=== PATIENT | female | born 1950 | race Caucasian/White ===

== ENCOUNTER 2021-03-16 02:22 | Inpatient (IN) | payer MEDICARE, MEDICAID, SELFPAY ==
[2021-03-16] VITALS (8 sets, daily range): BP systolic 125–196; BP diastolic 71–97; PULSE 82–119; RESP 18; TEMP 36.2–36.4; O2SAT 94–96; BMI 16.9
--- NOTE | 2021-03-16 04:26 | PC.ADMIT ---
Patient is a 70 year old Burmese speaking that was assessed at [facility] in [place], [place]. Patient was cited with increased depression and SI plan to overdose. Patient currently denies any current suicidal intent, but reports she is feeling hopeless and helpless. Patient reports that she has not been eating well for past 3 months and has lost about 40 lbs. Patient reports she is currently not taking any medications. Patient does report many family losses over the past year and a brother that was diagnosed with a terminal illness. Patient reported elevated anxiety and depression. During conversation patient appeared confused at some points, not remembering that she takes medications for HTN and cholesterol. Patient using a walker and was placed on 15 minute visual safety checks currently. patient deemed a high fall risk due to unsteady gait. Patient was involved in the intake and is future focused for help.
[2021-03-16] MEDS: Atorvastatin Calcium 20 MG TABLET PO (09:06)
[2021-03-16] MEDS: busPIRone HCl 5 MG TABLET 15 MG PO ×3 (09:06→21:16)
--- NOTE | 2021-03-16 09:10 | P.HPPS_ITS ---
HPI Chief Complaint: Adjustment disorder Additional Sources of Information: Cassi was the primary source of information in addition to the crisis team note HPI Subjective Notes: Conditional Voluntary Medical Problems Affecting Mental Status: No Narrative: Cassi is a 70-year-old white, , mother of 1 son who is 40 years old and is wheelchair bound because of multiple sclerosis which was diagnosed at age 18. She has had a longstanding history of depression. She has had 1 previous hospitalization at [facility] 2 years ago. In the past she has been on several SSRIs including Prozac, Zoloft, Celexa and did not find them to be that helpful. Recently and currently she is on no psychotropics. She states that several of her family members and siblings have been on Lexapro with very good response and she is interested in trying that. She has had a number of losses in the past 2 months including a brother and a sister. She lives alone and feels isolated. She does not have any history of substance abuse. In the past couple of months she is eating minimally and has lost a lot of weight. She has erratic sleep. She has been feeling hopeless and helpless and sometimes feeling that she would be better off . She denies any active suicidal ideations. No history of suicide attempts. She is on BuSpar 15 mg b.i.d., Remeron 30 mg q.h.s., Seroquel 25 mg t.i.d. p.r.n. Social history: Cassi is a walk-in of 7 siblings, 5 surviving. Both parents are . 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 She has been once for 25 years and for 20 years. Currently she lives alone and is on disability. Plan: Patient meets inpatient criteria for level of care for stabilization, safety and treatment. Lexapro 10 mg is initiated. Side effects were reviewed Past Psychiatric History: Past psychiatric history is positive for 1 inpatient hospitalization. She has had some outpatient treatment but not currently and recently Medical Evaluation Reviewed: Hospitalist Dereck Pending [facility] Medical History (Updated 03/16/21 @ 04:18 by Zaheer Becker RN) Anemia Dyslipidemia DOROTHY (generalized anxiety disorder) Hammer toe Hypertension Osteoarthritis Narrative: She has had polio in the past Family History: There is family history of depression Social History: Please refer to the initial narrative in this report Substance History: None Diagnostics Vital Signs (24Hr): Vital Signs - 24 hr 03/16/21 02:40 03/16/21 06:00 Temperature 97.5 F 97.1 F Pulse Rate 89 119 H Respiratory Rate 18 18 Blood Pressure 125/71 186/96 H Pulse Oximetry 96 94 Body Mass Index 16.9 Meds/Allergies Meds Home Medications Acetaminophen (Acetaminophen 325 Mg Tablet) 650 mg PO Q6H PRN PRN Reason: Headache/Pain Mild Scale (1-3) Al Hydroxide/Mg Hydroxide (Magnesium Hydrox/Alum Hydrox 30 Ml Oral.Susp) 30 ml PO Q6H PRN PRN Reason: Heartburn/Nausea Atorvastatin Calcium (Atorvastatin Calcium 20 Mg Tablet) 20 mg PO DAILY [facility] Last Admin: 03/16/21 09:06 Dose: 20 mg Documented by: Buspirone HCl (Buspirone Hcl 5 Mg Tablet) 15 mg PO TID [facility] Last Admin: 03/16/21 09:06 Dose: 15 mg Documented by: Losartan Potassium (Losartan Potassium 25 Mg Tablet) 25 mg PO DAILY [facility]; Protocol Magnesium Hydroxide (Milk Of Magnesia 30 Ml Oral.Susp) 30 ml PO DAILY PRN PRN Reason: Constipation Mirtazapine (Mirtazapine 30 Mg Tablet) 30 mg PO BEDTIME [facility] Non-Formulary Medication (Difluprednate [Durezol]) 1 drop EYE-BOTH TID CINDI Quetiapine Fumarate (Quetiapine Fumarate 25 Mg Tablet) 25 mg PO TID PRN PRN Reason: Anxiety Allergies Allergies Allergy/AdvReac Type Severity Reaction Status Date / Time Sulfa (Sulfonamide Allergy Unknown Verified 07/08/18 00:00 Antibiotics) Mental Status Exam Mental Status Exam Narrative: Patient was seen in the morning after her admission. She is alert, oriented, pleasant and cooperative. Speech is normal. Good eye contact. She is able to give adequate information. Affect is appropriate and subdued. No signs of psychosis. She denies any active suicidal ideations but admits to feelings of hopelessness and helplessness and sometimes having wishes. Cognitively he is intact. Judgment is intact Assessment & Plan Patient educated on: diagnosis, medication risk/benefits, substance abuse, ECT, TMS, therapeutic strategies, medical condition and other Reason for continued inpatient stay Substantial Risk for: harm to self
[2021-03-16] MEDS: Escitalopram Oxalate 10 MG TABLET PO (10:44)
[2021-03-16] MEDS: Losartan Potassium 25 MG TABLET PO (10:44)
[2021-03-16] MEDS: cloNIDine HCL 0.1 MG TABLET PO ×2 (12:39→21:16)
--- NOTE | 2021-03-16 14:22 | P.CONIM_ITS ---
History of Present Illness Data of Consult Service Date: 03/16/21 Requesting physician: Noel Baez Primary Care Provider: Unknown Physician HPI Reason for consult: Routine medical consultation 70-year-old woman admitted to for psychiatric care. Her vital signs are stable though her blood pressure is mildly elevated. No recent labs drawn. She has no acute medical complaints at this time. Routine medical consultation was placed. Review of Systems Review of Systems: Denies any recent fever chills or decrease in appetite respiratory denies any shortness of breath coverage production cardiovascular is adjustment of any PND or edema gastrointestinal denies any dysphagia abdominal pain nausea vomiting or diarrhea genitourinary denies any dysuria frequency or hematuria musculoskeletal denies any joint pain or swelling neuropsych denies any weakness or seizures all other systems reviewed are negative [facility] Medical History (Updated 03/16/21 @ 14:25 by Massiel Choi NP) Anemia Dyslipidemia DOROTHY (generalized anxiety disorder) Hammer toe Hypertension Osteoarthritis Social History Household Members: Significant Other Housing: House Do you presently have visiting nurse or other home services: No Patient Tobacco Use Status: Never used Tobacco Smoked in Last 30 Days: No e-Cigarette/Vaping Use: Former Use Patient Interested in Nicotine Replacement: No Patient Given Instructions on How to Stop Smoking: No Second Hand Smoke Exposure: No Use of substances other than those prescribed or required for medical reasons: No Currently Displaying Signs/Symptoms of Drug Intoxication Withdrawal: No Any prior treatment program specific to substance use: No Have you been hit, kicked, punched, or otherwise hurt by someone within the past year? If so, by whom?: No Do you feel safe in your current relationship?: No Is there a partner from a previous relationship who is making you feel unsafe now?: No Are you made to feel afraid or neglected: No Spiritual Healthcare Practices: none Religion Healthcare Practices: none Cultural Healthcare Practices: none Advance Directives: No Advance Directives Information Provided: No (declined) Advance Directives on File: No Do you have thoughts of harming others: None Do you have a plan to hurt others: No Plan Recently lost weight without trying: Yes How much weight loss: 34pounds or more Eating poorly because of decreased appetite: Yes Nutrition screen score: 7 Nutrition Risks: Poor intake 0-25% >4 days Patient : No : No Poor oral hygiene: No service: No Sexual orientation: Straight/Heterosexual Meds Allergies Allergy/AdvReac Type Severity Reaction Status Date / Time Sulfa (Sulfonamide Allergy Unknown Verified 07/08/18 00:00 Antibiotics) Active Medications: Current Medications Generic Name Dose Route Start Last Admin Trade Name Freq PRN Reason Stop Dose Admin Acetaminophen 650 mg 03/16/21 03:43 Acetaminophen 325 Mg Tablet PO Q6H PRN Headache/Pain Mild Scale (1-3) Al Hydroxide/Mg Hydroxide 30 ml 03/16/21 03:43 Magnesium Hydrox/Alum Hydrox 30 Ml Oral.Susp PO Q6H PRN Heartburn/Nausea Atorvastatin Calcium 20 mg 03/16/21 09:00 03/16/21 09:06 Atorvastatin Calcium 20 Mg Tablet PO 20 mg DAILY CINDI Administration Buspirone HCl 15 mg 03/16/21 09:00 03/16/21 09:06 Buspirone Hcl 5 Mg Tablet PO 15 mg TID CINDI Administration Clonidine HCl 0.1 mg 03/16/21 15:00 03/16/21 12:39 Clonidine Hcl 0.1 Mg Tablet PO 0.1 mg TID CINDI Administration Protocol Escitalopram Oxalate 10 mg 03/16/21 09:45 03/16/21 10:44 Escitalopram Oxalate 10 Mg Tablet PO 10 mg DAILY CINDI Administration Losartan Potassium 25 mg 03/16/21 09:00 03/16/21 10:44 Losartan Potassium 25 Mg Tablet PO 25 mg DAILY CINDI Administration Protocol Magnesium Hydroxide 30 ml 03/16/21 03:43 Milk Of Magnesia 30 Ml Oral.Susp PO DAILY PRN Constipation Mirtazapine 30 mg 03/16/21 21:00 Mirtazapine 30 Mg Tablet PO BEDTIME CINDI Non-Formulary Medication 1 drop 03/16/21 09:00 Difluprednate [Durezol] EYE-BOTH TID CINDI Quetiapine Fumarate 25 mg 03/16/21 03:43 Quetiapine Fumarate 25 Mg Tablet PO TID PRN Anxiety Home Medications Medication Instructions Recorded Confirmed Last Taken Type atorvastatin 1 tab PO DAILY 03/16/21 03/16/21 03/15/21 History 20 mg buspirone 1 tab PO TID 03/16/21 03/16/21 03/15/21 History 15 mg difluprednate [Durezol] 1 drp OPHTHALMIC (EYE) TID 03/16/21 03/16/21 Unknown History hydroxyzine pamoate cap PO 03/16/21 Unknown History losartan 1 tab PO DAILY 03/16/21 03/16/21 03/15/21 History 25 mg mirtazapine 1 tab PO BEDTIME 03/16/21 03/16/21 03/15/21 History 30 mg quetiapine 1 tab PO TID PRN 03/16/21 03/16/21 03/15/21 History 25 mg Physical Exam Vital Signs and Narrative: Vital Signs: Last Vital Signs Temp 97.1 F 03/16/21 06:00 Pulse 104 H 03/16/21 13:49 Resp 18 03/16/21 06:00 BP 151/83 H 03/16/21 13:49 Pulse Ox 94 03/16/21 06:00 Body Mass Index 16.9 Appearing in no acute distress head is normocephalic atraumatic eyes pupils are PERRLA sclera is anicteric mouth throat mucous membranes are intact and moist neck is supple no lymphadenopathy, no JVD noted lung sounds are clear to auscultation heart regular rate rhythm, clear S1, S2 positive bowel sounds, abdomen is soft, nontender neuro patient is alert x3, no focal deficits Assessment and Plan (1) Dyslipidemia: Status: Acute 70 year old women admitted to for psychiatric care. Routine medical consultation was requested Hypertension. Elevated blood pressure -Follow BP every shift -Losartan Hyperlipidemia -continue statin Psychiatric -Management as per psychiatry team
[2021-03-16] MEDS: Mirtazapine 30 MG TABLET PO (21:16)
[2021-03-17 06:15] VITALS: BP 147/77; PULSE 79; RESP 18; TEMP 36.3; O2SAT 99
--- NOTE | 2021-03-17 08:28 | HO.PSYCHPN ---
Subjective Subjective Date of Service: 03/17/21 Reason For Visit: Adjustment disorder Subjective Notes: Conditional Voluntary Guardianship: No Medical Problems Affecting Mental Status: No Interim History: Patient was seen in rounds today. She has settled in well. The yesterday her blood pressure was elevated and in talking to her it appears that she has not been taking her losartan regularly. Clonidine 0.1 mg t.i.d. was ordered and her blood pressure improved after that. She did start Lexapro and denies any side effects. Eating better and sleeping continues to be erratic. No changes were made today Medication Compliance: Yes Side effects from medications: No Attending Groups: Yes Review of Systems Review of Systems Yes all other systems are reviewed and are negative Mental Status Exam Mental Status Exam Narrative: She is alert, oriented, pleasant and cooperative. Speech is normal. Good eye contact. She is able to give adequate information. Affect is appropriate and subdued. No signs of psychosis. She denies any active suicidal ideations but admits to feelings of hopelessness and helplessness and sometimes having wishes. Cognitively he is intact. Judgment is intact Diagnostics Vital Signs (24Hr): Vital Signs - 24 hr 03/16/21 10:44 03/16/21 12:21 03/16/21 12:39 Temperature Pulse Rate 98 83 83 Respiratory Rate Blood Pressure 184/91 H 196/97 H 196/97 H Pulse Oximetry 03/16/21 13:49 03/16/21 18:00 03/16/21 21:16 Temperature 97.3 F Pulse Rate 104 H 82 82 Respiratory Rate Blood Pressure 151/83 H 162/90 H 162/90 H Pulse Oximetry 03/17/21 06:15 Temperature 97.4 F Pulse Rate 79 Respiratory Rate 18 Blood Pressure 147/77 H Pulse Oximetry 99 Body Mass Index 16.9 Medications Medications Current Medications Generic Name Dose Route Start Last Admin Trade Name Freq PRN Reason Stop Dose Admin Acetaminophen 650 mg 03/16/21 03:43 Acetaminophen 325 Mg Tablet PO Q6H PRN Headache/Pain Mild Scale (1-3) Al Hydroxide/Mg Hydroxide 30 ml 03/16/21 03:43 Magnesium Hydrox/Alum Hydrox 30 Ml Oral.Susp PO Q6H PRN Heartburn/Nausea Atorvastatin Calcium 20 mg 03/16/21 09:00 03/16/21 09:06 Atorvastatin Calcium 20 Mg Tablet PO 20 mg DAILY CINDI Administration Buspirone HCl 15 mg 03/16/21 09:00 03/16/21 21:16 Buspirone Hcl 5 Mg Tablet PO 15 mg TID CINDI Administration Clonidine HCl 0.1 mg 03/16/21 15:00 03/16/21 21:16 Clonidine Hcl 0.1 Mg Tablet PO 0.1 mg TID CINID Administration Protocol Escitalopram Oxalate 10 mg 03/16/21 09:45 03/16/21 10:44 Escitalopram Oxalate 10 Mg Tablet PO 10 mg DAILY CINDI Administration Losartan Potassium 25 mg 03/16/21 09:00 03/16/21 10:44 Losartan Potassium 25 Mg Tablet PO 25 mg DAILY CINDI Administration Protocol Magnesium Hydroxide 30 ml 03/16/21 03:43 Milk Of Magnesia 30 Ml Oral.Susp PO DAILY PRN Constipation Mirtazapine 30 mg 03/16/21 21:00 03/16/21 21:16 Mirtazapine 30 Mg Tablet PO 30 mg BEDTIME CINDI Administration Non-Formulary Medication 1 drop 03/16/21 09:00 Difluprednate [Durezol] EYE-BOTH TID CINDI Quetiapine Fumarate 25 mg 03/16/21 03:43 Quetiapine Fumarate 25 Mg Tablet PO TID PRN Anxiety Allergies Allergies Allergy/AdvReac Type Severity Reaction Status Date / Time Sulfa (Sulfonamide Allergy Unknown Verified 07/08/18 00:00 Antibiotics) Assessment & Plan Assessment & Plan (1) Dyslipidemia: Status: Acute Code(s): E78.5 - Hyperlipidemia, unspecified Assessment and Plan: 70 year old women admitted to for psychiatric care. Hypertension. Elevated blood pressure -Follow BP every shift -Losartan and clonidine Hyperlipidemia -continue statin Psychiatric -Management as per psychiatry team Greater than 50% of the session was spent on counseling and/or coordination of care Reason for contiued inpatient stay Substantial Risk for: harm to self
[2021-03-17 09:42] VITALS: BP 151/88; PULSE 104
[2021-03-17] MEDS: cloNIDine HCL 0.1 MG TABLET PO ×3 (09:42→21:20)
[2021-03-17] MEDS: Atorvastatin Calcium 20 MG TABLET PO (09:43)
[2021-03-17] MEDS: Losartan Potassium 25 MG TABLET PO (09:43)
[2021-03-17] MEDS: busPIRone HCl 5 MG TABLET 15 MG PO ×3 (09:43→21:19)
[2021-03-17] MEDS: Escitalopram Oxalate 10 MG TABLET PO (09:43)
[2021-03-17 14:08] VITALS: BP 111/63; PULSE 88
[2021-03-17 16:55] VITALS: BP 92/50; PULSE 65; TEMP 36.3
[2021-03-17] MEDS: Mirtazapine 30 MG TABLET PO (21:19)
[2021-03-17 21:20] VITALS: BP 116/67; PULSE 79
[2021-03-17] MEDS: QUEtiapine Fumarate 25 MG TABLET PO (23:22)
[2021-03-18 06:40] VITALS: BP 119/57; PULSE 71; TEMP 36.2
[2021-03-18 07:58] VITALS: BP 127/70; PULSE 84
[2021-03-18] MEDS: busPIRone HCl 5 MG TABLET 15 MG PO ×3 (07:58→22:09)
[2021-03-18] MEDS: Losartan Potassium 25 MG TABLET PO (07:58)
[2021-03-18] MEDS: Escitalopram Oxalate 10 MG TABLET PO (07:58)
[2021-03-18] MEDS: cloNIDine HCL 0.1 MG TABLET PO ×3 (07:58→22:09)
[2021-03-18] MEDS: Atorvastatin Calcium 20 MG TABLET PO (07:59)
--- NOTE | 2021-03-18 09:43 | HO.PSYCHPN ---
Subjective Subjective Date of Service: 03/18/21 Reason For Visit: Adjustment disorder Subjective Notes: Conditional Voluntary Healthcare Proxy: No Guardianship: No Medical Problems Affecting Mental Status: No Interim History: Patient was seen in rounds today. She continues to struggle with no appetite and poor eating. We discussed options and I ordered a dietary supplement, Ensure to be given twice a day and also added Megace 800 mg daily. Sleeping has been poor and I will increase her Seroquel to 50 mg. She denies any side effects. Depression continues to be present. She has been tolerating the Lexapro and had several questions about it which read this which we discussed. Medication Compliance: Yes Side effects from medications: No Attending Groups: Yes Review of Systems Review of Systems Yes all other systems are reviewed and are negative Mental Status Exam Mental Status Exam Narrative: In today's visit she is alert, oriented and pleasant. Normal speech. Good eye contact. Affect is appropriate and constricted. No active SI. Back Diagnostics Vital Signs (24Hr): Vital Signs - 24 hr 03/17/21 14:08 03/17/21 16:55 03/17/21 21:20 Temperature 97.3 F Pulse Rate 88 65 79 Blood Pressure 111/63 92/50 L 116/67 03/18/21 06:40 03/18/21 07:58 Temperature 97.1 F Pulse Rate 71 84 Blood Pressure 119/57 L 127/70 Body Mass Index 16.9 Medications Medications Current Medications Generic Name Dose Route Start Last Admin Trade Name Freq PRN Reason Stop Dose Admin Acetaminophen 650 mg 03/16/21 03:43 Acetaminophen 325 Mg Tablet PO Q6H PRN Headache/Pain Mild Scale (1-3) Al Hydroxide/Mg Hydroxide 30 ml 03/16/21 03:43 Magnesium Hydrox/Alum Hydrox 30 Ml Oral.Susp PO Q6H PRN Heartburn/Nausea Atorvastatin Calcium 20 mg 03/16/21 09:00 03/18/21 07:59 Atorvastatin Calcium 20 Mg Tablet PO 20 mg DAILY CINDI Administration Buspirone HCl 15 mg 03/16/21 09:00 03/18/21 07:58 Buspirone Hcl 5 Mg Tablet PO 15 mg TID CINDI Administration Clonidine HCl 0.1 mg 03/16/21 15:00 03/18/21 07:58 Clonidine Hcl 0.1 Mg Tablet PO 0.1 mg TID CINDI Administration Protocol Escitalopram Oxalate 10 mg 03/16/21 09:45 03/18/21 07:58 Escitalopram Oxalate 10 Mg Tablet PO 10 mg DAILY CINDI Administration Losartan Potassium 25 mg 03/16/21 09:00 03/18/21 07:58 Losartan Potassium 25 Mg Tablet PO 25 mg DAILY CINDI Administration Protocol Magnesium Hydroxide 30 ml 03/16/21 03:43 Milk Of Magnesia 30 Ml Oral.Susp PO DAILY PRN Constipation Mirtazapine 30 mg 03/16/21 21:00 03/17/21 21:19 Mirtazapine 30 Mg Tablet PO 30 mg BEDTIME CINDI Administration Non-Formulary Medication 1 drop 03/16/21 09:00 Difluprednate [Durezol] EYE-BOTH TID CINDI Quetiapine Fumarate 25 mg 03/16/21 03:43 03/17/21 23:22 Quetiapine Fumarate 25 Mg Tablet PO 25 mg TID PRN Administration Anxiety Allergies Allergies Allergy/AdvReac Type Severity Reaction Status Date / Time Sulfa (Sulfonamide Allergy Unknown Verified 07/08/18 00:00 Antibiotics) Assessment & Plan Assessment & Plan (1) Dyslipidemia: Status: Acute Code(s): E78.5 - Hyperlipidemia, unspecified Assessment and Plan: 70 year old women admitted to for psychiatric care for depression and suicidality Hypertension. Elevated blood pressure -Follow BP every shift -Losartan and clonidine Hyperlipidemia -continue statin Psychiatric -Management as per psychiatry team Continue current regimen with addition of Megace and increase of Seroquel Greater than 50% of the session was spent on counseling and/or coordination of care Reason for contiued inpatient stay Substantial Risk for: harm to self
[2021-03-18] MEDS: Megestrol Acetate 400 MG/10 ML ORAL.SUSP 800 MG PO (11:22)
[2021-03-18 14:47] VITALS: BP 118/66; PULSE 80
[2021-03-18] MEDS: QUEtiapine Fumarate 25 MG TABLET PO (14:47)
--- NOTE | 2021-03-18 15:54 | MHC.CLN ---
RE: CONSULT HT 61 WT 90# IBW 105#+/-10% PT IS 86% IBW INDICATES MILDLY UNDER WT FOR HT; BMI 16.9 PT REPORTS 40# WT LOSS X 3 MONTHS WITH POOR PO PT TRIGGERS FOR 31% SIGNIFICANT WT LOSS WITH UBW 130# ENN: 1227-1435KCALS (30-35KCALS/KG), 41G PROTEIN, 1230CC FLUIDS LABS: N/A MEDS: REMERON, SEROQUEL, BUSPAR DIET RX: REGULAR-APPROPRIATE PT RECEIVING ENSURE TID TO PROVIDE 1050KCALS, 60G PROTEIN SUPPLEMENT PROVIDES 73% EST KCAL NEEDS, 158% EST. PROTEIN NEEDS RECOMMEND CONTINUE WITH SUPPLEMENT, WEEKLY WEIGHTS AND MONITOR PO INTAKE CLOSELY
[2021-03-18 18:00] VITALS: BP 127/66; PULSE 74; TEMP 37.1
[2021-03-18 22:09] VITALS: BP 127/66; PULSE 74
[2021-03-18] MEDS: QUEtiapine Fumarate 50 MG TABLET PO (22:09)
[2021-03-18] MEDS: Mirtazapine 30 MG TABLET PO (22:10)
[2021-03-19 06:00] VITALS: BP 118/60; PULSE 66
[2021-03-19 09:22] VITALS: BP 118/60; PULSE 66
[2021-03-19] MEDS: cloNIDine HCL 0.1 MG TABLET PO ×3 (09:22→22:12)
[2021-03-19] MEDS: Atorvastatin Calcium 20 MG TABLET PO (09:22)
[2021-03-19] MEDS: Losartan Potassium 25 MG TABLET PO (09:22)
[2021-03-19] MEDS: QUEtiapine Fumarate 50 MG TABLET PO ×2 (09:23→22:08)
[2021-03-19] MEDS: busPIRone HCl 5 MG TABLET 15 MG PO ×3 (09:23→22:08)
[2021-03-19] MEDS: Escitalopram Oxalate 10 MG TABLET PO (09:23)
--- NOTE | 2021-03-19 10:29 | P.PNPSI_ITS ---
Subjective Subjective Date of Service: 04/09/21 Reason For Visit: Adjustment disorder Interim History: Patient continues to endorse depressed mood, anhedonia, poor sleep. She has been mostly in bed. She denies SI/HI. Taking medications as prescribed, no side effects. Review of Systems Review of Systems Denies any recent fever chills or decrease in appetite respiratory denies any shortness of breath coverage production cardiovascular is adjustment of any PND or edema gastrointestinal denies any dysphagia abdominal pain nausea vomiting or diarrhea genitourinary denies any dysuria frequency or hematuria musculoskeletal denies any joint pain or swelling neuropsych denies any weakness or seizures all other systems reviewed are negative Yes all other systems are reviewed and are negative and Other Constitutional: Reports as per HPI, Reports difficulty sleeping, Reports lethargy, Reports stops breathing during sleep and Reports weight loss Musculoskeletal: Reports abnormal gait Skin/Breast: Reports system reviewed and no additional complaints, except as docu Reports system reviewed and no additional complaints, except as documented and Reports abnormal gait Psychiatric: Reports as per HPI Endocrine: Reports no additional endocrine complaints Hematologic/Lymphatic: Reports as per HPI Allergic/Immunologic: Reports no additional allergic/immunologic complaints Mental Status Exam Mental Status Exam Narrative: Appearance: casually groomed, fair hygiene, in NAD Behavior: calm, cooperative Psychomotor: no agitation or retardation noted Speech: clear, normal rate/rhythm/volume, spontaneous TP: linear TC: no signs of psychosis, future oriented Mood: better Affect:brighter, non labile SI:none HI:none AH/VH:none Delusions:none Insight/judgment:fair x 2. Memory/cog: alert, oriented x 3. Grossly intact to conversational testing. Diagnostics Vital Signs (24Hr): Body Mass Index 18.8 Medications Allergies Allergies Allergy/AdvReac Type Severity Reaction Status Date / Time Sulfa (Sulfonamide Allergy Unknown Verified 07/08/18 00:00 Antibiotics) Assessment & Plan Assessment & Plan (1) Dyslipidemia: Status: Acute Code(s): E78.5 - Hyperlipidemia, unspecified Assessment and Plan: 70 year old women admitted to for psychiatric care for depression and suici dality Hypertension. Elevated blood pressure -Follow BP every shift -Losartan and clonidine Hyperlipidemia -continue statin Psychiatric -Management as per psychiatry team Continue current regimen with addition of Megace and increase of Seroquel Greater than 50% of the session was spent on counseling and/or coordination of care Reason for contiued inpatient stay Substantial Risk for: harm to self
[2021-03-19] MEDS: Acetaminophen 325 MG TABLET 650 MG PO (12:50)
[2021-03-19] MEDS: QUEtiapine Fumarate 25 MG TABLET PO ×2 (12:50→17:15)
[2021-03-19 16:45] VITALS: BP 115/59; PULSE 75
[2021-03-19] MEDS: Mirtazapine 30 MG TABLET PO (22:08)
[2021-03-19 22:12] VITALS: BP 126/56; PULSE 84
[2021-03-19 22:14] VITALS: BP 126/56; PULSE 84; TEMP 36.9; O2SAT 97
[2021-03-20 06:00] VITALS: BP 148/65; PULSE 72; RESP 16; TEMP 36.2; O2SAT 98
[2021-03-20 08:40] VITALS: BP 149/81; PULSE 73
[2021-03-20] MEDS: cloNIDine HCL 0.1 MG TABLET PO ×3 (08:40→21:48)
[2021-03-20] MEDS: busPIRone HCl 5 MG TABLET 15 MG PO (08:45)
[2021-03-20] MEDS: QUEtiapine Fumarate 50 MG TABLET PO (08:45)
[2021-03-20] MEDS: Escitalopram Oxalate 10 MG TABLET PO (08:45)
--- NOTE | 2021-03-20 10:30 | HO.PSYCHPN ---
Subjective Subjective Date of Service: 04/09/21 Reason For Visit: Adjustment disorder Interim History: Patient reports slight improvement in symptoms of depressed mood, anhedonia. She continues to report poor sleep. She has been mostly in bed. She denies SI/HI. Taking medications as prescribed, no side effects. She was encouraged to attend assigned groups Review of Systems Review of Systems Denies any recent fever chills or decrease in appetite respiratory denies any shortness of breath coverage production cardiovascular is adjustment of any PND or edema gastrointestinal denies any dysphagia abdominal pain nausea vomiting or diarrhea genitourinary denies any dysuria frequency or hematuria musculoskeletal denies any joint pain or swelling neuropsych denies any weakness or seizures all other systems reviewed are negative Yes all other systems are reviewed and are negative and Other Constitutional: Reports as per HPI, Reports difficulty sleeping, Reports lethargy, Reports stops breathing during sleep and Reports weight loss Musculoskeletal: Reports abnormal gait Skin/Breast: Reports system reviewed and no additional complaints, except as docu Reports system reviewed and no additional complaints, except as documented and Reports abnormal gait Psychiatric: Reports as per HPI Endocrine: Reports no additional endocrine complaints Hematologic/Lymphatic: Reports as per HPI Allergic/Immunologic: Reports no additional allergic/immunologic complaints Mental Status Exam Mental Status Exam Narrative: Appearance: casually groomed, fair hygiene, in NAD Behavior: calm, cooperative Psychomotor: no agitation or retardation noted Speech: clear, normal rate/rhythm/volume, spontaneous TP: linear TC: no signs of psychosis, future oriented Mood: better Affect:brighter, non labile SI:none HI:none AH/VH:none Delusions:none Insight/judgment:fair x 2. Memory/cog: alert, oriented x 3. Grossly intact to conversational testing. Diagnostics Vital Signs (24Hr): Body Mass Index 18.8 Medications Allergies Allergies Allergy/AdvReac Type Severity Reaction Status Date / Time Sulfa (Sulfonamide Allergy Unknown Verified 07/08/18 00:00 Antibiotics) Assessment & Plan Assessment & Plan (1) Dyslipidemia: Status: Acute Code(s): E78.5 - Hyperlipidemia, unspecified Assessment and Plan: 70 year old women admitted to for psychiatric care for depression and suicidality Hypertension. Elevated blood pressure -Follow BP every shift -Losartan and clonidine Hyperlipidemia -continue statin Psychiatric -Management as per psychiatry team Continue current regimen with addition of Megace and increase of Seroquel Greater than 50% of the session was spent on counseling and/or coordination of care Reason for contiued inpatient stay Substantial Risk for: harm to self
[2021-03-20] MEDS: Atorvastatin Calcium 20 MG TABLET PO (11:42)
[2021-03-20 16:15] VITALS: BP 146/78; PULSE 70
[2021-03-20 18:00] VITALS: BP 123/60; PULSE 68; RESP 16; O2SAT 99
[2021-03-20 21:48] VITALS: BP 111/53; PULSE 72
[2021-03-20] MEDS: QUEtiapine Fumarate 100 MG TABLET PO (21:49)
[2021-03-20] MEDS: Mirtazapine 15 MG TABLET PO (21:49)
[2021-03-21] MEDS: QUEtiapine Fumarate 25 MG TABLET PO ×2 (01:58→10:59)
[2021-03-21 06:00] VITALS: BP 123/64; PULSE 60; RESP 16; TEMP 36.4; O2SAT 97
[2021-03-21 07:48] LABS: Cholesterol 224 mg/dL; HDL Cholesterol 59 mg/dL; LDL Cholesterol Calculated 154 mg/dl; Triglycerides 56 mg/dL
[2021-03-21 08:20] VITALS: BP 139/69; PULSE 74
[2021-03-21] MEDS: Atorvastatin Calcium 20 MG TABLET PO (08:20)
[2021-03-21] MEDS: cloNIDine HCL 0.1 MG TABLET PO ×3 (08:20→22:03)
[2021-03-21] MEDS: Escitalopram Oxalate 10 MG TABLET PO (08:20)
[2021-03-21 08:29] LABS: Folate 12.3 ng/mL (> or = 4.0); Vitamin B12 261 pg/mL (200-900)
[2021-03-21 08:37] LABS: Estimated Average Glucose 108 mg/dL; Hemoglobin A1c % 5.4 %
[2021-03-21 09:08] VITALS: BMI 18.8
--- NOTE | 2021-03-21 10:31 | HO.PSYCHPN ---
Subjective Subjective Date of Service: 04/09/21 Reason For Visit: Adjustment disorder Interim History: Patient has been more visible in the unit. She reports having more energy to engage in activities that she enjoys. She reports slightly improvement in sleep. She reports feeling more restful today. She denies SI/HI. No behavioral concerns. Review of Systems Review of Systems Denies any recent fever chills or decrease in appetite respiratory denies any shortness of breath coverage production cardiovascular is adjustment of any PND or edema gastrointestinal denies any dysphagia abdominal pain nausea vomiting or diarrhea genitourinary denies any dysuria frequency or hematuria musculoskeletal denies any joint pain or swelling neuropsych denies any weakness or seizures all other systems reviewed are negative Yes all other systems are reviewed and are negative and Other Constitutional: Reports as per HPI, Reports difficulty sleeping, Reports lethargy, Reports stops breathing during sleep and Reports weight loss Musculoskeletal: Reports abnormal gait Skin/Breast: Reports system reviewed and no additional complaints, except as docu Reports system reviewed and no additional complaints, except as documented and Reports abnormal gait Psychiatric: Reports as per HPI Endocrine: Reports no additional endocrine complaints Hematologic/Lymphatic: Reports as per HPI Allergic/Immunologic: Reports no additional allergic/immunologic complaints Mental Status Exam Mental Status Exam Narrative: Appearance: casually groomed, fair hygiene, in NAD Behavior: calm, cooperative Psychomotor: no agitation or retardation noted Speech: clear, normal rate/rhythm/volume, spontaneous TP: linear TC: no signs of psychosis, future oriented Mood: better Affect:brighter, non labile SI:none HI:none AH/VH:none Delusions:none Insight/judgment:fair x 2. Memory/cog: alert, oriented x 3. Grossly intact to conversational testing. Diagnostics Vital Signs (24Hr): Body Mass Index 18.8 Medications Allergies Allergies Allergy/AdvReac Type Severity Reaction Status Date / Time Sulfa (Sulfonamide Allergy Unknown Verified 07/08/18 00:00 Antibiotics) Assessment & Plan Assessment & Plan (1) Dyslipidemia: Status: Acute Code(s): E78.5 - Hyperlipidemia, unspecified Assessment and Plan: 70 year old women admitted to for psychiatric care for depression and suicidality Hypertension. Elevated blood pressure -Follow BP every shift -Losartan and clonidine Hyperlipidemia -continue statin Psychiatric -Management as per psychiatry team Continue current regimen with addition of Megace and increase of Seroquel Greater than 50% of the session was spent on counseling and/or coordination of care Reason for contiued inpatient stay Substantial Risk for: stable for discharge
[2021-03-21 10:55] VITALS: BP 132/60
[2021-03-21] MEDS: Losartan Potassium 25 MG TABLET PO (10:55)
[2021-03-21 17:58] VITALS: BP 134/59; PULSE 104; TEMP 36.6; O2SAT 96
[2021-03-21 17:59] VITALS: BP 134/59; PULSE 104
[2021-03-21 22:03] VITALS: BP 99/64; PULSE 70
[2021-03-21] MEDS: clonazePAM 0.5 MG TABLET PO (22:03)
[2021-03-21] MEDS: Melatonin 3 MG TABLET 6 MG PO (22:03)
[2021-03-22 06:00] VITALS: BP 132/69; PULSE 62; RESP 16; TEMP 36.6; O2SAT 97
[2021-03-22 08:48] VITALS: BP 128/63; PULSE 85; RESP 18; TEMP 37.1; O2SAT 99
[2021-03-22 08:51] VITALS: BP 128/63; PULSE 85
[2021-03-22] MEDS: Losartan Potassium 25 MG TABLET PO (08:51)
[2021-03-22 08:52] VITALS: BP 128/63; PULSE 85
[2021-03-22] MEDS: Atorvastatin Calcium 20 MG TABLET PO (08:52)
[2021-03-22] MEDS: Escitalopram Oxalate 10 MG TABLET 20 MG PO (08:52)
[2021-03-22] MEDS: cloNIDine HCL 0.1 MG TABLET PO (08:52)
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
--- NOTE | 2021-03-22 11:37 | PC.NURSE ---
Patient is alert and oriented x 3. She is dressed in her own pajamas with hospital johncatalina overlapping on top. Her appearance is unkempt though hygiene is acceptable. Patient is noted to maintain a messy room with food packaging and personal affects scattered about. She presents with logical and linear thought process but constricted flat affect. Her speech is soft and quiet. Cassi reports she is dealing with a lot of loss at this time, explaining multiple family members have been ill and/or have passed. Patient has been pleasant and social with peers and staff alike while on the unit, spending time in both the day room and her hospital room. Patient reports depression 04/27 stating she feels the Lexapro is not helping yet. Patient states she doesn't expect the Lexapro to address all her depression symptoms at this time as she is aware it can take 2-3 weeks to become effective. Patient is aware she will need to follow-up with outpatient providers for on-going medication management. Patient denies anxiety, suicidal/homicidal ideation, auditory/visual hallucinations and pain. Though she reports she needs a knee replacement. Cassi reports her home is safe and she feels comfortable returning at this time. Patient states readiness for discharge and denies any questions about care plan.
== END 2021-03-22 02:00 | disposition home or self-care (01) | DRG 885 ==
LOC: HO.PM5 03-19 10:18 → HO.PGERI 03-19 15:04
PROVIDERS: Admitting Provider Psychiatry & Neurology Psychiatry; Visit Provider Social Worker
DX: F33.1 Major depressive disorder, recurrent, moderate (principal); F41.9 Anxiety disorder, unspecified; I10 Essential (primary) hypertension; E78.5 Hyperlipidemia, unspecified; Z87.891 Personal history of nicotine dependence; Z88.2 Allergy status to sulfonamides; Z79.899 Other long term (current) drug therapy
CPT/HCPCS: 36415; 80061; 82607; 82746; 83036; 90792; 99232